=== PATIENT | male | born 1985 | race African-American/Black ===

== ENCOUNTER 2023-09-20 19:47 | Emergency (ER) | payer OTHER ==
[~2023-09-20] VITALS: Ht 182.9 cm; Wt 88.5 kg
[2023-09-20] MEDS ORDERED: IBUPROFEN 600 MG TABLET PO ONE (22:30)
[2023-09-20] MEDS ORDERED: ACETAMINOPHEN 325 MG TABLET PO ONE (22:30)
[2023-09-20] MEDS ORDERED: IBUPROFEN 600 MG TABLET ONE (22:44)
[2023-09-20] MEDS ORDERED: ACETAMINOPHEN 325 MG TABLET ONE (22:44)
[2023-09-20 22:49] VITALS: BP 141/97; TEMP 98; O2SAT 98
== END 2023-09-20 22:49 ==
LOC: ER 19:57
DX: R51.9 Headache, unspecified (principal); Y08.89XA Assault by other specified means, initial encounter; Y93.89 Activity, other specified; Y92.89 Other specified places as the place of occurrence of the external cause; Y99.8 Other external cause status
CPT/HCPCS: 70450-TC; 70486-TC